=== PATIENT | male | born 1945 | race Caucasian/White ===

== ENCOUNTER 2017-10-14 08:36 | Inpatient (IN) | payer OTHER ==
[~2017-10-14] VITALS: Ht 167.6 cm; Wt 97.5 kg
[~2017-10-14 08:36] MED LIST: ADULT LOW DOSE81 M1 PO; AMITRIPTYLINE H25 MG PO; AUGMENTIN875 MG PO; Aspirin E.C. PO; GLIPIZIDE-METF1 EAC2 PO; HYDROCODON-ACE1 EAC8 PO; IMDUR30 MG PO; ISOSORBIDE DINI30 MG PO; Imdur PO; JANUMET 50/51 TABLET PO; JANUMET XR 50-1 EACH PO; Janumet 50/500 PO; LO-DOSE ASPIRIN81 M1 PO; METOPROLOL SUCC25 MG PO; PROVENTIL HFA6.7 GM IH; SYNTHROID75 MCG PO; Vicodin,Norco 5/325 PO; ZESTRIL,PRINIVI40 M1 PO; ZESTRIL40 MG PO; ZOCOR80 MG PO; ZOLPIDEM TARTRA10 MG PO; Zestril,Prinivil PO
[2017-10-14 10:25] LABS: HEMATOCRIT 35.8 % (38.0-50.0); HEMOGLOBIN 11.7 G/DL (12.5-16.6); MCH 29.1 PG (29.0-34.0); MCHC 32.7 G/DL (30.0-36.0); MCV 89.1 FL (86-99); PLATELET COUNT 204 K/uL (156-360); RBC DIS.WIDTH-SD 45.7 % (39-53); RED BLOOD COUNT 4.02 M/uL (4.00-5.50); WHITE BLOOD COUNT 10.5 K/uL (4.1-10.2)
[2017-10-14 10:36] LABS: CHLORIDE 104 mEq/L (99-109); POTASSIUM 4.8 mEq/L (3.7-5.4); SODIUM 136 mEq/L (136-147)
[2017-10-14 10:37] LABS: GLUCOSE 232 mg/dL (70-99)
[2017-10-14 10:41] LABS: GFR ESTIMATE (CALCULATED) 35 mL/min/ (58.99-99999)
[2017-10-14 10:42] LABS: UREA NITROGEN (BUN) 34 mg/dL (9-23)
[2017-10-14 12:04] LABS: INTER. NORMALIZED RATIO 1.1
[2017-10-14 12:20] LABS: TROP-I INTERPRETATION NEGATIVE; TROPONIN-I 0.02 ng/mL (0.0-0.30)
[2017-10-14] MEDS ORDERED: COZAAR100 MG PO (13:27)
[2017-10-14] MEDS ORDERED: TRAMADOL HCL50 MG PO (13:28)
[2017-10-14] MEDS ORDERED: LANTUS 10100 UNITS/ SC (13:30)
[2017-10-14] MEDS ORDERED: NOVOLOG 10100 UNITS/ SC (13:30)
[2017-10-14 15:34] VITALS: BP 164/84
[2017-10-14 19:38] VITALS: BP 173/82
[2017-10-14 23:28] VITALS: BP 159/72
[2017-10-15 04:31] VITALS: BP 125/67
[2017-10-15 06:11] LABS: BASOPHIL (%) 0.3 % (0-1); EOSINOPHIL COUNT 0.3 K/uL (0-0.3); IMMATURE GRANULOCYTE (%) 0.2 % (0.0-0.7); LYMPHOCYTE (%) 37.4 % (15-42); LYMPHOCYTE COUNT 3.4 K/uL (1.0-2.8); MCH 28.9 PG (29.0-34.0); MCHC 32.4 G/DL (30.0-36.0); MCV 89.5 FL (86-99); MONOCYTE (%) 7.3 % (3-12); MONOCYTE COUNT 0.7 K/uL (0-0.8); NEUTROPHIL (%) 51.8 % (45-76); NEUTROPHIL COUNT 4.7 K/uL (1.8-6.4); PLATELET COUNT 198 K/uL (156-360); RBC DIS.WIDTH-CV 14.4 % (11.8-14.6); RBC DIS.WIDTH-SD 47.6 % (39-53); WHITE BLOOD COUNT 9.1 K/uL (4.1-10.2)
[2017-10-15 06:39] LABS: CHLORIDE 102 MEQ/L (99-109); GLUCOSE 197 mg/dL (70-99); POTASSIUM 4.4 MEQ/L (3.7-5.4); SODIUM 135 MEQ/L (136-147); UREA NITROGEN (BUN) 26 mg/dL (9-23)
[2017-10-15 06:40] LABS: CREATININE 1.5 MG/DL (0.6-1.3); GFR ESTIMATE (CALCULATED) 49 mL/min/ (58.99-99999)
[2017-10-15 08:03] VITALS: BP 136/65
[2017-10-15 12:04] VITALS: BP 124/72
[2017-10-15 16:12] VITALS: BP 137/89
[2017-10-15 19:27] VITALS: BP 174/76
[2017-10-15 23:24] VITALS: BP 136/65
[2017-10-16] VITALS (7 sets, daily range): BP systolic 124–166; BP diastolic 63–82
[2017-10-17 03:35] VITALS: BP 138/65
[2017-10-17 06:06] LABS: HEMATOCRIT 35.3 % (38.0-50.0); HEMOGLOBIN 11.4 G/DL (12.5-16.6); MCH 28.6 PG (29.0-34.0); MCHC 32.3 G/DL (30.0-36.0); MCV 88.5 FL (86-99); PLATELET COUNT 242 K/uL (156-360); RBC DIS.WIDTH-CV 13.9 % (11.8-14.6); RBC DIS.WIDTH-SD 45.7 % (39-53); RED BLOOD COUNT 3.99 M/uL (4.00-5.50); WHITE BLOOD COUNT 9.4 K/uL (4.1-10.2)
[2017-10-17 06:45] LABS: CHLORIDE 98 MEQ/L (99-109); CREATININE 1.6 MG/DL (0.6-1.3); GFR ESTIMATE (CALCULATED) 45 mL/min/ (58.99-99999); GLUCOSE 207 mg/dL (70-99); POTASSIUM 4.5 MEQ/L (3.7-5.4); SODIUM 132 MEQ/L (136-147); UREA NITROGEN (BUN) 30 mg/dL (9-23)
[2017-10-17 08:02] VITALS: BP 131/74
[2017-10-17] MEDS ORDERED: PREDNISONE10 MG PO (09:42)
[2017-10-17] MEDS ORDERED: LEVAQUIN500 MG PO (09:42)
[2017-10-17 11:56] LABS: HEMOGLOBIN A1c (GLYCOHEMOGLOB) 12.1 % (Below 5.7)
== END 2017-10-17 10:33 | disposition home or self-care (01) | DRG 190 ==
LOC: EME 08:36 → 3EAST 14:04 → EDOF 14:04 → ENRESERV 14:05 → 3EAST 15:18 → ENRESERV 10-16 19:17 → 2EAST 10-16 19:59
PROVIDERS: Emergency Medicine; Family Medicine
DX: J44.0 Chronic obstructive pulmonary disease with (acute) lower respiratory infection (principal); J44.1 Chronic obstructive pulmonary disease with (acute) exacerbation; J15.9 Unspecified bacterial pneumonia; E11.22 Type 2 diabetes mellitus with diabetic chronic kidney disease; I25.10 Atherosclerotic heart disease of native coronary artery without angina pectoris; Z87.891 Personal history of nicotine dependence; E78.5 Hyperlipidemia, unspecified; Z95.1 Presence of aortocoronary bypass graft; Z80.1 Family history of malignant neoplasm of trachea, bronchus and lung; R09.02 Hypoxemia; I12.9 Hypertensive chronic kidney disease with stage 1 through stage 4 chronic kidney disease, or unspecified chronic kidney disease; N18.9 Chronic kidney disease, unspecified; N28.9 Disorder of kidney and ureter, unspecified
CPT/HCPCS: 71046; 80048; 82948; 83036; 83605; 83880; 84484; 85025; 85027; 85610; 85730; 87040; 87070; 87077; 87186; 87205; 93005; 94640; 94799; J0456; J0696; J1644; J1815; J7030